=== PATIENT | female | born 1960 ===

== ENCOUNTER 2021-03-19 14:52 | Day surgery (SDC) | payer BC ==
[2021-03-19] MEDS ORDERED: Cyclopentolate 1% Ophth Drops 15 ML BOT ONE (15:30)
[2021-03-19] MEDS ORDERED: Phenylephrine 2.5% Ophth Soln 5 ML BOT ONE (15:30)
[2021-03-19] MEDS ORDERED: EPINEPHrine 0.3 MG in Ophthalmic Irrigation Solution 500 ML IRR SCH (15:30)
[2021-03-19] MEDS ORDERED: Phenylephrine 2.5% Ophth Soln 5 ML BOT FS SCH (15:30)
[2021-03-19] MEDS ORDERED: Cyclopentolate 1% Opth Drop 2 ML BOT FS SCH (15:30)
[2021-03-19] MEDS ORDERED: Fentanyl 100 MCG/2 ML VIAL ONE (15:57)
[2021-03-19] MEDS ORDERED: Propofol 500 MG/50 ML VIAL ONE (15:57)
[2021-03-19 16:29] LABS: SARS-CoV-2 NAA Rapid Test Not Detected (NotDetected)
[2021-03-19] MEDS ORDERED: Triamcinolone 40 MG/ML VIAL ONE (17:22)
[2021-03-19] MEDS ORDERED: CEFAZOLIN 1 GM VIAL ONE (17:22)
[2021-03-19] MEDS ORDERED: Bupivacaine PF 0.75% SDV 10 ML ONE (17:22)
[2021-03-19] MEDS ORDERED: Maxitrol 0.1% Opth Oint 3.5 GM TUBE ONE (17:22)
[2021-03-19] MEDS ORDERED: Lidocaine 4% PF 5 ML AMP ONE (17:22)
[2021-03-19] MEDS ORDERED: Lidocaine 1% PF 5 ML VIAL ONE (17:22)
[2021-03-19] MEDS ORDERED: PROPOFOL 200 MG/20 ML VIAL ONE (17:22)
== END 2021-03-19 18:45 | disposition home or self-care (01) ==
LOC: SDC 14:52
PROVIDERS: ATTEND Ophthalmology Retina Specialist
PROC: 08T43ZZ Resection of Right Vitreous, Percutaneous Approach (ICD-10-PCS; principal; 2021-03-19)
DX: H33.021 Retinal detachment with multiple breaks, right eye (principal); Z88.0 Allergy status to penicillin; Z88.5 Allergy status to narcotic agent
CPT/HCPCS: 0240U; 67025; J0171; J0690; J2704; J3010; J3301; J3490